=== PATIENT | female | born 1990 | race African-American/Black ===

== ENCOUNTER 2017-10-27 17:53 | Emergency (ER) | payer SELFPAY ==
[~2017-10-27] VITALS: Ht 157.5 cm; Wt 83.6 kg
[~2017-10-27 17:53] MED LIST: TAM75 PO; [UNRECOGNIZED DRUG - CODE] PO
[2017-10-27 18:05] VITALS: BP 117/73
--- NOTE | 2017-10-27 18:11 | NUR ---
PT SPEAK FULL SENCTENCES, NO ACCESSORY MUSCLE USE, VSS, DR RODRIGUEZ NOTIFIED, PT AMBULATES BACK TO THE LOBBY WITHOUT DIFFICULTY
--- NOTE | 2017-10-27 18:59 | NUR ---
PT AMBULATED TO CHAIR D @ 18:58
--- NOTE | 2017-10-27 19:32 | NUR ---
PATIENT PRESENTS TO ED WITH C/O SOB X 3 DAYS WITH SORE THROAT AND GEN BODY ACHE, TOOK IBUPROFEN AND NYQUIL WITH NO RELIEF HX; DENIES RX; DENIES DENIES N/V/D; SKIN IS PINK/WARM/DRY; AAOX4 WITH EVEN AND STEADY GAIT; LUNGS CLEAR BL; HR EVEN AND REGULAR; PATIENT STATES PAIN OF 8/10 AT THIS TIME; PATIENT POSITIONED FOR COMFORT; HOB ELEVATED; BEDRAILS UP X2; BED DOWN. ER MD MADE AWARE OF PT STATUS.
--- NOTE | 2017-10-27 19:50 | NUR ---
Patient being evaluated by physician at bedside.
--- NOTE | 2017-10-27 20:14 | NUR ---
PT AMBULATED TO ER BED 03
--- NOTE | 2017-10-27 20:42 | NUR ---
FLU SWAB AND STREP DONE, HANDED TO CARLOS FROM LAB
[2017-10-27 21:30] VITALS: BP 100/68
--- NOTE | 2017-10-27 21:31 | NUR ---
Patient discharged with v/s stable. Written and verbal after care instructions given and explained. Patient alert, oriented and verbalized understanding of instructions. Ambulatory with steady gait. All questions addressed prior to discharge. ID band removed. Patient advised to follow up with PMD. Rx of AZITHROMYCIN, PROMETHAZINE HYDROCHLORIDE/DEXTROMETHORPHAN HYDROBROMIDE given. Patient educated on indication of medication including possible reaction and side effects. Opportunity to ask questions provided and answered.
== END 2017-10-27 21:31 | disposition home or self-care (01) ==
LOC: MED 17:53
DX: J02.8 Acute pharyngitis due to other specified organisms (principal); B96.89 Other specified bacterial agents as the cause of diseases classified elsewhere; Z79.899 Other long term (current) drug therapy
CPT/HCPCS: 36415; 87081; 87804; 99284

== ENCOUNTER 2018-09-15 12:02 | Emergency (ER) | payer SELFPAY ==
[~2018-09-15] VITALS: Ht 157.5 cm; Wt 85.7 kg
[2018-09-15 12:08] VITALS: BP 99/65
--- NOTE | 2018-09-15 12:12 | NUR ---
PT GIVEN URINE SAMPLE CUP, AMB TO LOBBY, VSS
--- NOTE | 2018-09-15 13:04 | NUR ---
PT AMBULATED TO ER BED 12
--- NOTE | 2018-09-15 13:15 | NUR ---
PT. ARRIVED TO THE ED W/ C/O LLQ PAIN X THIS MORNING. PT. STATES " I WOKE UP WITH THIS SHARP PAIN AND ITS ALWAYS THERE , I TOOK A URINE TEST AND IT SAID IT WAS POSITIVE". [id number]. PT HAS 8/10 SHARP CONSTANT NON RADIAITING PAIN IN LLQ. DENIES ANY V/D. C/O NAUSEA INTERMITTENT. DENIES ANY FEVER OR CHILLS, DOES STATE " I FEEL DIZZY". ABD ROUND AND SOFT AND TENDER UPON PALPATION TO LLQ. ER MD MADE AWARE. RR EVEN AND UNLABORED. SAFETY PRECAUTIONS IMPLEMENTED. WILL CONTINUE TO MONITOR.
--- NOTE | 2018-09-15 14:00 | NUR ---
lab at bedside
[2018-09-15 14:13] LABS: BASOPHILS % (AUTO) 0.3 % (0.0-2.0); EOSINOPHILS % (AUTO) 0.3 % (0.0-4.0); HEMATOCRIT 41.6 % (36-48); HEMOGLOBIN 13.5 g/dL (12.0-16.0); LYMPHOCYTES # (AUTO) 2.4 K/uL (2.5-16.5); LYMPHOCYTES % (AUTO) 33.5 % (20.5-51.1); MEAN CORPUSCULAR HEMOGLOBIN 27 pg (27-31); MEAN CORPUSCULAR HGB CONC 32 g/dL (33-37); MEAN CORPUSCULAR VOLUME 84.6 fL (80-94); MONOCYTES # (AUTO) 0.4 K/uL (0.8-1.0); MONOCYTES % (AUTO) 6.3 % (1.7-9.3); NEUTROPHILS # (AUTO) 4.2 K/uL (1.8-7.7); NEUTROPHILS % (AUTO) 59.6 % (42.2-75.2); PLATELET COUNT (AUTO) 301 K/uL (140-450); RED BLOOD CELL COUNT(AUTO) 4.92 MIL/uL (4.20-5.40); RED CELL DISTRIBUTION WIDTH 13.6 % (11.6-13.7); WHITE BLOOD COUNT (AUTO) 7.1 K/uL (4.8-10.8)
[2018-09-15] MEDS ORDERED: IBUPROFEN 400 MG TAB PO ONE (15:25)
[2018-09-15 15:38] VITALS: BP 108/64
--- NOTE | 2018-09-15 15:38 | NUR ---
Patient discharged with v/s stable. Written and verbal after care instructions given and explained. Patient alert, oriented and verbalized understanding of instructions. Ambulatory with steady gait. All questions addressed prior to discharge. ID band removed. Patient advised to follow up with PMD. Rx of NAPROSYN 375MG, CEPHALAXIN 500MG given. Patient educated on indication of medication including possible reaction and side effects. Opportunity to ask questions provided and answered. COPIES OF LAB WORK AND ULTRASOUND GIVEN
[2018-09-15 15:47] LABS: APPEARANCE,URINE SL CLOUDY (CLEAR); BILIRUBIN,URINE NEGATIVE (NEGATIVE); BLOOD, URINE NEGATIVE (NEGATIVE); COLOR,URINE YELLOW (YELLOW); LEUKOCYTE ESTERASE ,URINE 1+ (NEGATIVE); NITRITE, URINE NEGATIVE (NEGATIVE); UGLUCOSE NEGATIVE (NEGATIVE)
[2018-09-15 15:48] LABS: RBC,URINE 0-5 (RARE) /HPF (0-5)
== END 2018-09-15 15:38 | disposition home or self-care (01) ==
LOC: MED 12:02
DX: N39.0 Urinary tract infection, site not specified (principal); Z79.2 Long term (current) use of antibiotics; Z79.899 Other long term (current) drug therapy
CPT/HCPCS: 36415; 76817; 81001; 84702; 85025; 86900; 86901; 87086; 99284; Q0092; 81025

== ENCOUNTER 2019-02-23 19:57 | Emergency (ER) | payer OTHER ==
[~2019-02-23] VITALS: Ht 157.5 cm; Wt 87.1 kg
[2019-02-23 20:16] VITALS: BP 113/66
--- NOTE | 2019-02-23 20:16 | NUR ---
PT AMBULATED TO BED #8.
--- NOTE | 2019-02-23 20:18 | NUR ---
28 Y/O F PRESENTED TO ED WITH C/O VAGINAL BLEEDING X1 HOUR AGO. BLEEDING DARK RED COLOR AND CONTROLLED.PT APPROXIMATELY 5-6 WEEKS . LMP 01/16/19. NO CARE, OBGYN APPOINTEMENT SCHEDULED FOR 2018. EXPERIENCING TO LLQ, CRAMPIING, 7/10 PAIN. LLQ TENDER TO TOUCH. ERMD NOTIFIED. WILL CONTINUE TO MONITOR.
[2019-02-23 20:20] VITALS: BP 113/66
[2019-02-23 20:54] LABS: BASOPHILS % (AUTO) 0.3 % (0.0-2.0); EOSINOPHILS # (AUTO) 0.1 K/uL (0-0.4); EOSINOPHILS % (AUTO) 0.7 % (0.0-4.0); HEMATOCRIT 37.9 % (36-48); HEMOGLOBIN 12.5 g/dL (12.0-16.0); LYMPHOCYTES # (AUTO) 2.4 K/uL (2.5-16.5); LYMPHOCYTES % (AUTO) 32.1 % (20.5-51.1); MEAN CORPUSCULAR HEMOGLOBIN 28 pg (27-31); MEAN CORPUSCULAR HGB CONC 33 g/dL (33-37); MEAN CORPUSCULAR VOLUME 84.8 fL (80-94); MONOCYTES # (AUTO) 0.7 K/uL (0.8-1.0); MONOCYTES % (AUTO) 9.5 % (1.7-9.3); NEUTROPHILS # (AUTO) 4.3 K/uL (1.8-7.7); NEUTROPHILS % (AUTO) 57.4 % (42.2-75.2); PLATELET COUNT (AUTO) 333 K/uL (140-450); RED BLOOD CELL COUNT(AUTO) 4.47 MIL/uL (4.20-5.40); RED CELL DISTRIBUTION WIDTH 13.5 % (11.6-13.7); WHITE BLOOD COUNT (AUTO) 7.4 K/uL (4.8-10.8)
[2019-02-23 20:55] LABS: APPEARANCE,URINE CLEAR (CLEAR); BILIRUBIN,URINE NEGATIVE (NEGATIVE); BLOOD, URINE NEGATIVE (NEGATIVE); COLOR,URINE YELLOW (YELLOW); LEUKOCYTE ESTERASE ,URINE NEGATIVE (NEGATIVE); NITRITE, URINE NEGATIVE (NEGATIVE); PH,URINE 7.5 (5.0-9.0); UGLUCOSE NEGATIVE (NEGATIVE)
--- NOTE | 2019-02-23 21:00 | NUR ---
PT AWAKE AND ALERT. PER PT "I FEELING FINE." WILL CONTINUE TO MONITOR.
[2019-02-23 21:05] LABS: ANION GAP 13.6 (8-16); CREATININE 0.8 mg/dL (0.6-1.3); POTASSIUM 3.6 mmol/L (3.5-5.1)
--- NOTE | 2019-02-23 21:54 | NUR ---
Patient discharged with v/s stable. Written and verbal after care instructions given and explained. Patient verbalized understanding. Ambulatory with steady gait. All questions addressed prior to discharge. Provided with laboratory results. Advised to follow up with PMD.
== END 2019-02-23 21:54 | disposition home or self-care (01) ==
LOC: MED 19:57
DX: O20.8 Other hemorrhage in early pregnancy (principal); Z3A.01 Less than 8 weeks gestation of pregnancy; Z79.899 Other long term (current) drug therapy
CPT/HCPCS: 36415; 76802; 80048; 81003; 81025; 84702; 85025; 86900; 86901; 99284; Q0092

== ENCOUNTER 2019-04-15 07:55 | Emergency (ER) | payer OTHER ==
[~2019-04-15] VITALS: Ht 160 cm; Wt 88.5 kg
[2019-04-15 08:05] VITALS: BP 117/69
--- NOTE | 2019-04-15 08:12 | NUR ---
PATIENT AMBULATED TO BED 4.
--- NOTE | 2019-04-15 08:12 | NUR ---
BIB SELF. AAOX 4 C/O RIGHT UPPER ABDOMINAL PAIN RADIATING TO BACK, N/V SINCE 0300 X TODAY. PT STATED 13 WKS ROBERT:10/23/2019. PT DENIES FEVER, CHILLS, DIARRHEA, TRAUMA/INJURY. ER TO EVALUATE PT.
[2019-04-15] MEDS ORDERED: NACL 0.9% 1,000 ML IV SCH (08:16)
[2019-04-15] MEDS ORDERED: MORPHINE SULFATE 4 MG/ML SYR IVP ONE (08:25)
--- NOTE | 2019-04-15 08:30 | NUR ---
PAIN IV MEDICATION OF MORPHINE HELD. PT UNDECIDED TO TAKE PAIN MEDS.
--- NOTE | 2019-04-15 08:44 | NUR ---
PT UNABLE TO GIVE URINE SPECIMEN AT THIS TIME. WILL TRY AGAIN LATER
[2019-04-15 09:06] LABS: BASOPHILS # (AUTO) 0.1 K/uL (0.00-0.22); BASOPHILS % (AUTO) 0.6 % (0.0-2.0); EOSINOPHILS % (AUTO) 0.6 % (0.0-4.0); HEMATOCRIT 32.1 % (36-48); HEMOGLOBIN 10.6 g/dL (12.0-16.0); LYMPHOCYTES # (AUTO) 1.5 K/uL (2.5-16.5); LYMPHOCYTES % (AUTO) 17.1 % (20.5-51.1); MEAN CORPUSCULAR HEMOGLOBIN 28 pg (27-31); MEAN CORPUSCULAR HGB CONC 33 g/dL (33-37); MEAN CORPUSCULAR VOLUME 83.7 fL (80-94); MONOCYTES # (AUTO) 0.5 K/uL (0.8-1.0); MONOCYTES % (AUTO) 5.8 % (1.7-9.3); NEUTROPHILS # (AUTO) 6.6 K/uL (1.8-7.7); NEUTROPHILS % (AUTO) 75.9 % (42.2-75.2); PLATELET COUNT (AUTO) 265 K/uL (140-450); RED BLOOD CELL COUNT(AUTO) 3.83 MIL/uL (4.20-5.40); RED CELL DISTRIBUTION WIDTH 13.9 % (11.6-13.7); WHITE BLOOD COUNT (AUTO) 8.8 K/uL (4.8-10.8)
--- NOTE | 2019-04-15 09:10 | NUR ---
ULTRASOUND AT BEDSIDE
--- NOTE | 2019-04-15 09:12 | NUR ---
L&D AT BEDSIDE FOR HEART TONE CHECK
[2019-04-15 09:16] LABS: ANION GAP 15.9 (8-16); CARBON DIOXIDE 21.7 mmol/L (21-32); CREATININE 0.6 mg/dL (0.6-1.3); POTASSIUM 3.6 mmol/L (3.5-5.1)
--- NOTE | 2019-04-15 09:20 | NUR ---
L&D NURSE UNABLE TO FIND HEART TONE AT THIS TIME. DR MORTON NOTIFIED. DR MORTON TO ORDER FOR ULTRASOUND.
[2019-04-15 09:21] LABS: TOTAL BILIRUBIN 0.3 mg/dL (0.0-1.0)
--- NOTE | 2019-04-15 09:34 | NUR ---
PT STATES SHE WILL TAKE IV PAIN MEDICATION AFTER THE ULTRASOUND
--- NOTE | 2019-04-15 09:35 | NUR ---
PT AMBULATED TO THE BATHROOM WITH STEADY GAIT. URINE CUP GIVEN
--- NOTE | 2019-04-15 09:38 | NUR ---
PT AMBULATED BACK TO BED WITH STEADY GAIT.
--- NOTE | 2019-04-15 10:00 | NUR ---
PT LAYING DOWN.EVEN AND UNLABORED BREATHING. NO SIGNS AND SYMPTOMS OF DISTRESS NOTED. PT CONVERSATING TO APPROPRIATELY
[2019-04-15 10:05] LABS: APPEARANCE,URINE CLEAR (CLEAR); BILIRUBIN,URINE NEGATIVE (NEGATIVE); BLOOD, URINE NEGATIVE (NEGATIVE); COLOR,URINE YELLOW (YELLOW); LEUKOCYTE ESTERASE ,URINE NEGATIVE (NEGATIVE); NITRITE, URINE NEGATIVE (NEGATIVE); UGLUCOSE NEGATIVE (NEGATIVE)
--- NOTE | 2019-04-15 10:23 | NUR ---
ULTRASOUND AT BEDSIDE
[2019-04-15 10:25] LABS: RBC,URINE 0 /HPF (0-5); WBC,URINE 0-5 /HPF (0-5)
--- NOTE | 2019-04-15 10:53 | NUR ---
PT STILL WANTS TO HOLD OFF TO IV PAIN MEDICATION UNTIL THE DR TALKS TO HER ABOUT THE 1ST ULTRASOUND RESULTS. PT LAYING. NO SIGNS AND SYMPTOMS OF DISTRESS NOTED.
--- NOTE | 2019-04-15 12:00 | NUR ---
PT RESTING COMFORTABLY. EASILY AROUSABLE BY VOICE. EVEN AND UNLABORED BREATHING. NO SIGNS AND SYMPTOMS OF DISTRESS NOTED.
--- NOTE | 2019-04-15 12:16 | NUR ---
Pt report given to RYNE SOLIS. Transfer of care at this time.
[2019-04-15] MEDS ORDERED: NACL 0.9% 1,000 ML IV ONE (12:30)
--- NOTE | 2019-04-15 12:48 | NUR ---
REPORT RECEIVED FROM RYNE SOLIS FOR TRANSFER OF CARE
--- NOTE | 2019-04-15 13:24 | NUR ---
PT JUST ATE SOUP FOR LUNCH. PT REQUESTED FOR TORSTEN CRACKERS AND APPLE JUICE.
[2019-04-15 14:23] VITALS: BP 93/58
--- NOTE | 2019-04-15 14:23 | NUR ---
Patient discharged with v/s stable. Written and verbal after care instructions given and explained. Patient alert, oriented and verbalized understanding of instructions. Ambulatory with steady gait. All questions addressed prior to discharge. ID band removed. Patient advised to follow up with PMD. Rx of NORCO 5MG-325MG given. Patient educated on indication of medication including possible reaction and side effects. Opportunity to ask questions provided and answered.
== END 2019-04-15 14:23 | disposition home or self-care (01) ==
LOC: MED 07:55
DX: O34.81 Maternal care for other abnormalities of pelvic organs, first trimester (principal); N83.209 Unspecified ovarian cyst, unspecified side; Z3A.12 12 weeks gestation of pregnancy
CPT/HCPCS: 36415; 76705; 76802; 80053; 81001; 83690; 84703; 85025; 96374; 99284; J2270; J7030; Q0092; 81025

== ENCOUNTER 2019-05-08 22:19 | Emergency (ER) | payer OTHER ==
[~2019-05-08] VITALS: Ht 157.5 cm; Wt 88.9 kg
[2019-05-08 22:21] VITALS: BP 102/67
[2019-05-08 23:53] LABS: BASOPHILS % (AUTO) 0.1 % (0.0-2.0); EOSINOPHILS # (AUTO) 0.1 K/uL (0-0.4); EOSINOPHILS % (AUTO) 0.8 % (0.0-4.0); HEMATOCRIT 31.8 % (36-48); HEMOGLOBIN 10.4 g/dL (12.0-16.0); LYMPHOCYTES # (AUTO) 2.4 K/uL (2.5-16.5); LYMPHOCYTES % (AUTO) 20.7 % (20.5-51.1); MEAN CORPUSCULAR HEMOGLOBIN 28 pg (27-31); MEAN CORPUSCULAR HGB CONC 33 g/dL (33-37); MEAN CORPUSCULAR VOLUME 84.5 fL (80-94); MONOCYTES # (AUTO) 0.7 K/uL (0.8-1.0); NEUTROPHILS # (AUTO) 8.3 K/uL (1.8-7.7); NEUTROPHILS % (AUTO) 72.4 % (42.2-75.2); PLATELET COUNT (AUTO) 350 K/uL (140-450); RED BLOOD CELL COUNT(AUTO) 3.76 MIL/uL (4.20-5.40); RED CELL DISTRIBUTION WIDTH 13.2 % (11.6-13.7); WHITE BLOOD COUNT (AUTO) 11.4 K/uL (4.8-10.8)
[2019-05-08 23:54] LABS: APPEARANCE,URINE HAZY (CLEAR); BILIRUBIN,URINE NEGATIVE (NEGATIVE); BLOOD, URINE 3+ (NEGATIVE); COLOR,URINE YELLOW (YELLOW); LEUKOCYTE ESTERASE ,URINE NEGATIVE (NEGATIVE); NITRITE, URINE NEGATIVE (NEGATIVE); UGLUCOSE NEGATIVE (NEGATIVE)
[2019-05-09 00:20] LABS: RBC,URINE TOO NUMEROUS TO COUN /HPF (0-5); WBC,URINE 0-5 /HPF (0-5)
--- NOTE | 2019-05-09 01:00 | NUR ---
PT CAME IN TO ER WITH C/O VAGINAL BLEEDING TODAY. PT STATED SHE WAS OUT TO DINNER AND FELT A "WET GUSH OF FLUID COMING OUT OF HER". SHE STATED SHE WENT TO THE RESTROOM AND SAW BLOOD. PT HAS SOME PELVIC CRAMPING WELL. PT DENIES HAVING BLOOD CLOTS. PT IS CURRENTLY UNDER OBGYN CARE. PT IS CURRENTLY 16 WEEKS AND IS . LMP WAS January. PT IS ALERT AND ORIENTED X 4. ER MD MADE AWARE OF STATUS. SAFETY MEASURES IN PLACE.
--- NOTE | 2019-05-09 01:36 | NUR ---
DR. SAUCEDO EVALUATING AT BEDSIDE.
--- NOTE | 2019-05-09 02:08 | NUR ---
ATTEMPTED TO IDENTIFY HEART TONES VIA DOPPLER; IRREGULAR AND INCONSISTENT. US AT BEDSIDE.
--- NOTE | 2019-05-09 02:15 | NUR ---
US AT BEDSIDE.
--- NOTE | 2019-05-09 02:30 | NUR ---
PELVIC TRAY SET UP, PT READY. DR. SAUCEDO NOTIFIED.
--- NOTE | 2019-05-09 03:15 | NUR ---
DR. SAUCEDO AND FEMALE NURSE AT BEDSIDE FOR PREPARING FOR PELVIC EXAM. PT STATES "I AM NOT BLEEDING MUCH ANYMORE. I AM ONLY SPOTTING NOW. I DON'T THINK I NEED THE EXAM". PELVIC EXAM D/C BY DR. SAUCEDO.
[2019-05-09 04:45] VITALS: BP 118/71
--- NOTE | 2019-05-09 04:45 | NUR ---
Patient discharged with v/s stable. Written and verbal after care instructions given and explained. Patient verbalized understanding. Ambulatory with steady gait. All questions addressed prior to discharge. Advised to follow up with OBGYN tomorrow.
== END 2019-05-09 04:45 | disposition home or self-care (01) ==
LOC: MED 22:19
DX: O20.8 Other hemorrhage in early pregnancy (principal); Z3A.16 16 weeks gestation of pregnancy; Z98.890 Other specified postprocedural states
CPT/HCPCS: 36415; 76802; 81001; 81025; 84702; 85025; 86900; 86901; 99284; Q0092

== ENCOUNTER 2019-11-20 14:33 | Emergency (ER) | payer OTHER ==
[~2019-11-20] VITALS: Ht 157.5 cm; Wt 72.6 kg
[2019-11-20 14:33] VITALS: BP 138/81
--- NOTE | 2019-11-20 14:33 | NUR ---
Pt with negative screening for COVID-19. Pt wearing mask. Pt taken to bed, Dr Crandall made aware.
--- NOTE | 2019-11-20 14:43 | NUR ---
Pt taken to bed via wheelchair
[2019-11-20] MEDS ORDERED: NACL 0.9% 1,000 ML IV ONE (14:55)
--- NOTE | 2019-11-20 15:13 | NUR ---
lab at bedside.
--- NOTE | 2019-11-20 15:14 | NUR ---
28f c/o weakness, lethargy, x1 day. worsening vaginal bleeding, uncontrolled for few days. with fibroid removal 2 months ago. hx anemia, fibroid removal
--- NOTE | 2019-11-20 15:32 | NUR ---
PT. RESTING IN BED COMFORTABLY, NO FURTHER NEEDS AT THIS TIME. IV SITE PATENT AND FLUIDS INFUSING. RAILS UP X 1, BED AT LOWEST AND LOCKED.
[2019-11-20 16:00] LABS: BASOPHILS % (AUTO) 0.4 % (0.0-2.0); EOSINOPHILS # (AUTO) 0.1 K/uL (0-0.4); EOSINOPHILS % (AUTO) 1.3 % (0.0-4.0); HEMATOCRIT 34.5 % (36-48); HEMOGLOBIN 10.7 g/dL (12.0-16.0); LYMPHOCYTES # (AUTO) 2.2 K/uL (2.5-16.5); LYMPHOCYTES % (AUTO) 38.9 % (20.5-51.1); MEAN CORPUSCULAR HEMOGLOBIN 24 pg (27-31); MEAN CORPUSCULAR HGB CONC 31 g/dL (33-37); MEAN CORPUSCULAR VOLUME 76.9 fL (80-94); MONOCYTES # (AUTO) 0.5 K/uL (0.8-1.0); MONOCYTES % (AUTO) 9.6 % (1.7-9.3); NEUTROPHILS # (AUTO) 2.8 K/uL (1.8-7.7); NEUTROPHILS % (AUTO) 49.8 % (42.2-75.2); PLATELET COUNT (AUTO) 293 K/uL (140-450); RED BLOOD CELL COUNT(AUTO) 4.49 MIL/uL (4.20-5.40); RED CELL DISTRIBUTION WIDTH 22.7 % (11.6-13.7); WHITE BLOOD COUNT (AUTO) 5.7 K/uL (4.8-10.8)
[2019-11-20 16:11] LABS: ALBUMIN 3.6 g/dL (3.4-5.0); ANION GAP 12.1 (8-16); CARBON DIOXIDE 29.6 mmol/L (21-32); CREATININE 0.8 mg/dL (0.6-1.3); POTASSIUM 3.7 mmol/L (3.5-5.1); TOTAL BILIRUBIN 0.2 mg/dL (0.0-1.0)
--- NOTE | 2019-11-20 16:45 | NUR ---
Patient discharged with v/s stable. Written and verbal after care instructions given and explained. Patient verbalized understanding. Ambulatory with steady gait. All questions addressed prior to discharge. Advised to follow up with PMD. Pt waiting for ride to come.
[2019-11-20 16:46] VITALS: BP 121/68
== END 2019-11-20 16:45 | disposition home or self-care (01) ==
LOC: MED 14:33
DX: D64.9 Anemia, unspecified (principal); N93.9 Abnormal uterine and vaginal bleeding, unspecified; R51 Headache; Z98.890 Other specified postprocedural states
CPT/HCPCS: 36415; 80053; 81025; 84484; 85025; 93005; 99284; J7030

== ENCOUNTER 2022-09-23 12:23 | Emergency (ER) | payer BC, OTHER ==
[~2022-09-23] VITALS: Ht 160 cm; Wt 98.0 kg
[2022-09-23 12:38] VITALS: BP 112/64
[2022-09-23] MEDS ORDERED: DEXTROSE 50% 50 ML SYR IVP ONE (12:41)
--- NOTE | 2022-09-23 13:47 | NUR ---
Rona guerrero in [facility] - 09/23/22 at 1347 by [email or web address] PT AMBULATED TO ER BED 5
--- NOTE | 2022-09-23 13:47 | NUR ---
PT AMB TO BED 5
--- NOTE | 2022-09-23 13:49 | NUR ---
PA STEIN AT BEDSIDE FOR EVALUATION
--- NOTE | 2022-09-23 13:55 | NUR ---
Female Maintenance Of Way Superintendent accompanied female patient for GENITAL Exam.
--- NOTE | 2022-09-23 14:23 | NUR ---
31/F PRESENTS TO ED WITH C/O ABSCESS ON RIGHT LABIA X2 DAYS, DENIES RECENT FEVERS, CHILLS, DENIES DRAINAGE FROM ABSCESS. STATES AREA IS "RED AND HARD" REPORTS PAIN WORSENS WITH MOVEMENT, SITTING, AND WALKING.
[2022-09-23] MEDS ORDERED: LIDOCAINE 1% 500 MG/ 50 ML VIAL INJ ONE (14:40)
[2022-09-23] MEDS ORDERED: SULF-954 PO (14:46)
[2022-09-23 14:51] VITALS: BP 119/72
[2022-09-23] MEDS ORDERED: LIDOCAINE MPF 1% 5 ML ONE (15:02)
[2022-09-23] MEDS ORDERED: LIDOCAINE MPF 1% 10 MG/ML VIAL INJ ONE (15:05)
--- NOTE | 2022-09-23 15:20 | NUR ---
PT PROVIDED WITH NON ADHERENT TO SELF APPLY, PER PA.
--- NOTE | 2022-09-23 15:41 | NUR ---
Patient discharged with v/s stable. Written and verbal after care instructions FOR INCISION AND DRAINAGE given and explained. Patient alert, oriented and verbalized understanding of instructions. Ambulatory with steady gait. All questions addressed prior to discharge. ID band removed. Patient advised to follow up with PMD. Rx of SULFAMETHOXAZOLE given. Opportunity to ask questions provided and answered.
--- NOTE | 2022-09-23 15:42 | NUR ---
The patient's care was reviewed and supervised by Darlene Wen RN.
== END 2022-09-23 15:41 | disposition home or self-care (01) ==
LOC: MED 12:23
DX: L02.215 Cutaneous abscess of perineum (principal); Z79.899 Other long term (current) drug therapy
CPT/HCPCS: 56405; 99284; J2001

== ENCOUNTER 2022-09-30 17:48 | Emergency (ER) | payer BC ==
[~2022-09-30] VITALS: Ht 157.5 cm; Wt 96.2 kg
[~2022-09-30 17:48] MED LIST changes: +SULF-954 PO; -TAM75 PO; -[UNRECOGNIZED DRUG - CODE] PO
[2022-09-30 18:05] VITALS: BP 148/96
--- NOTE | 2022-09-30 18:10 | NUR ---
EKG AT TRIAGE ROOM.
--- NOTE | 2022-09-30 18:24 | NUR ---
Patient being evaluated by DR NEWMAN at bedside.
--- NOTE | 2022-09-30 18:24 | NUR ---
Patient being evaluated by DR NEWMAN at [facility].
--- NOTE | 2022-09-30 18:25 | NUR ---
Rona guerrero in [facility] - 09/30/22 at 1827 by [email or web address] Patient being evaluated by TONY SALAZAR at bedside.
[2022-09-30] MEDS ORDERED: KETOROLAC 30 MG/ML VIAL IM ONE (18:30)
[2022-09-30 19:15] LABS: BASOPHILS % (AUTO) 0.4 % (0.0-2.0); EOSINOPHILS # (AUTO) 0.1 K/uL (0-0.4); HEMOGLOBIN 9.5 g/dL (12.0-16.0); LYMPHOCYTES # (AUTO) 2.8 K/uL (2.5-16.5); LYMPHOCYTES % (AUTO) 32.7 % (20.5-51.1); MEAN CORPUSCULAR HEMOGLOBIN 22 pg (27-31); MEAN CORPUSCULAR HGB CONC 32 g/dL (33-37); MEAN CORPUSCULAR VOLUME 68.9 fL (80-94); MONOCYTES # (AUTO) 0.5 K/uL (0.8-1.0); NEUTROPHILS # (AUTO) 5.2 K/uL (1.8-7.7); NEUTROPHILS % (AUTO) 59.9 % (42.2-75.2); PLATELET COUNT (AUTO) 476 K/uL (140-450); RED BLOOD CELL COUNT(AUTO) 4.35 MIL/uL (4.20-5.40); RED CELL DISTRIBUTION WIDTH 18.5 % (11.6-13.7); WHITE BLOOD COUNT (AUTO) 8.7 K/uL (4.8-10.8)
[2022-09-30 19:37] LABS: ALBUMIN 3.9 g/dL (3.4-5.0); ANION GAP 12.1 (8-16); ASPARTATE AMINOTRANSFERASE 17 U/L (15-37); CARBON DIOXIDE 26.5 mmol/L (21-32); CHLORIDE 101 mmol/L (98-107); CREATININE 0.9 mg/dL (0.6-1.3); GFR ARICAN-AMERICAN 93 mL/min (>90); GLUCOSE 97 mg/dL (74-106); LIPASE 99 U/L (73-393); POTASSIUM 3.6 mmol/L (3.5-5.1); SODIUM SERUM 136 mmol/L (136-145); TOTAL BILIRUBIN 0.1 mg/dL (0.0-1.0); UREA NITROGEN, BLOOD 10 mg/dL (7-18)
[2022-09-30 20:18] VITALS: BP 148/96
--- NOTE | 2022-09-30 20:18 | NUR ---
Patient discharged with v/s stable. Written and verbal after care instructions given and explained. Patient verbalized understanding. Ambulatory with steady gait. All questions addressed prior to discharge. Advised to follow up with PMD.
== END 2022-09-30 20:18 | disposition home or self-care (01) ==
LOC: MED 17:48
DX: R07.9 Chest pain, unspecified (principal)
CPT/HCPCS: 36415; 71045; 80053; 81025; 83690; 84484; 85025; 93005; 96372; 99285; J1885